=== PATIENT | female | born 1990 | race Caucasian/White ===

== ENCOUNTER 2017-10-16 07:05 | Day surgery (SDC) | payer BC ==
[~2017-10-16 07:05] MED LIST: DEXAMETHASONE SOD PHOSPHATE 10 MG/ML 1 ML VIAL IV ONE; HEPARIN SODIUM,PORCINE 5,000 UNIT/ML 1 ML VIAL SQ ONE; MIDAZOLAM 2 MG/2 ML VIAL IV PRN; ONDANSETRON 4 MG/2 ML VIAL IVP ONE; SCOPOLAMINE 1.5MG/72HR PATCH TRANSDERM ONE; fentaNYL (PF) 50 MCG/ML 2 ML AMP IV PRN
--- NOTE | 2017-10-16 07:13 | P.GSHP ---
History of Present Illness H&P Date: 10/16/17 CHIEF COMPLAINT: Cholecystitis HISTORY OF PRESENT ILLNESS: The patient is a 27-year-old female who presents with history of epigastric including right upper quadrant abdominal pain. She underwent diagnostic studies for her gallbladder. Separately her clinical picture was consistent with cholecystitis. Now she presents for surgical intervention. PAST MEDICAL HISTORY: Please see list PAST SURGICAL HISTORY: Please see list MEDICATIONS: Please see list ALLERGIES: Denies. SOCIAL HISTORY: No illicit drug use or recent tobacco use FAMILY HISTORY: Pertinent for gallbladder disease REVIEW OF ORGAN SYSTEMS: CONSTITUTIONAL: No reports of fevers or chills. HEENT: Denies any troubles with the vision or hearing. ENDOCRINE: No reports of hypothyroidism. No diabetes. RESPIRATORY: No recent pneumonias. CARDIOVASCULAR: Denies chest pain or palpitations GI: No blood in stools or constipation. MUSCULOSKELETAL: Has occasional joint pain including back pain. NEURO: No seizure disorders or headaches. No recent stroke. PSYCH: No depression or suicidal ideation. HEMATOLOGIC: No personal or family history of DVTs or pulmonary emboli. PHYSICAL EXAM: VITAL SIGNS: Afebrile vital signs stable GENERAL: Well-developed pleasant in no acute distress. HEENT: No scleral icterus. Extraocular movements grossly intact. Moist buccal mucosa. NECK: Supple without lymphadenopathy. CHEST: Unlabored respirations. Equal bilateral excursions. CARDIOVASCULAR: Regular rate regular rhythm rhythm. Distal 2+ pulses. ABDOMEN: Soft, nondistended. Tender along the epigastrium and right upper quadrant. MUSCULOSKELETAL: No clubbing, cyanosis, or edema. NEURO: Cranial nerves II to XII within normal limits. No focal or lateralizing signs. PSYCH: Alert and oriented to person, place and time. ASSESSMENT: 1. Epigastric and right upper quadrant abdominal pain 2. Chronic cholecystitis 3. Symptomatic gallstones. PLAN: 1. Will need a robotic cholecystectomy possible open. Benefits and risks were described. 2. Heparin for DVT prophylaxis 5000 units. 3. Antibiotic prophylaxis. Past Medical History Past Medical History: GERD/Reflux, Hypertension Additional Past Medical History / Comment(s): SEASONAL ALLERGIES. HEART MURMUR (HAD VALENTIN IN THE PAST COUPLE YEARS, WAS TOLD HAD A LEAKY VALVE, BUT NO NEED FOR FURTHER FOLLOW-UP). History of Any Multi-Drug Resistant Organisms: None Reported Additional Past Surgical History / Comment(s): WISDOM TEETH. VALENTIN. Past Anesthesia/Blood Transfusion Reactions: No Reported Reaction, Motion Sickness Additional Past Anesthesia/Blood Transfusion Reaction / Comment(s): HAS NEVER HAD GENERAL ANESTHESIA. Past Psychological History: Anxiety, Depression Smoking Status: Never smoker Past Alcohol Use History: Rare Past Drug Use History: None Reported - Past Family History Mother Family Medical History: No Reported History Medications and Allergies Home Medications Medication Instructions Recorded Confirmed Type Acetaminophen [Tylenol] 325 - 650 mg PO Q6H PRN 10/14/17 10/14/17 History Cetirizine HCl [Zyrtec] 10 mg PO PC-SUPPER 10/14/17 10/14/17 History Lisinopril-Hctz 10-12.5 mg 1 tab PO PC-SUPPER 10/14/17 10/14/17 History [Zestoretic 10-12.5] Ranitidine HCl [Zantac] 150 mg PO BID 10/14/17 10/14/17 History Venlafaxine HCl ER [Effexor XR] 37.5 mg PO PC-SUPPER 10/14/17 10/14/17 History Allergies Allergy/AdvReac Type Severity Reaction Status Date / Time No Known Allergies Allergy Verified 10/14/17 11:19
[2017-10-16] MEDS ORDERED: ACETAMINOPHEN IV (For NPO) 1,000 MG in EMPTY BAG 1 BAG IVPB ONE (07:39)
[2017-10-16] MEDS ORDERED: INDOCYANINE GREEN 25 MG VIAL IV STA (07:39)
[2017-10-16] MEDS: LACTATED RINGERS 1,000 ML IV SCH ×2 (08:09→08:10)
[2017-10-16 08:17] LABS: HCT 37.4 % (34.0-46.0); HGB 13.2 gm/dL (11.4-16.0); MCH 31.1 pg (25.0-35.0); MCHC 35.4 g/dL (31.0-37.0); MCV 87.8 fL (80.0-100.0); Mean Platelet Volume 6.2; Platelet Count 248 k/uL (150-450); RBC 4.25 m/uL (3.80-5.40); RDW 13.2 % (11.5-15.5); WBC 6.1 k/uL (3.8-10.6)
[2017-10-16] MEDS ORDERED: LIDOCAINE 1% 20 ML VIAL (10MG/ML) FOR IV START INTRADERMA ONE (08:19)
[2017-10-16 08:24] LABS: Potassium 4.2 mmol/L (3.5-5.1)
[2017-10-16] MEDS ORDERED: ePHEDrine SULFATE/0.9% NACL/PF 50 MG/5 ML SYRINGE IV ONE (10:53)
[2017-10-16] MEDS ORDERED: HYDROmorphone (PF) 1 MG/ML ONE (10:53)
[2017-10-16] MEDS ORDERED: SUCCINYLCHOLINE CHLORIDE 100 MG/5 ML SYR IV ONE (10:53)
[2017-10-16] MEDS ORDERED: LIDOCAINE 1% INJ 10MG/ML (20 ML MDV) ONE (10:53)
[2017-10-16] MEDS ORDERED: NEOSTIGMINE 1 MG/ML 10 ML VIAL ONE (10:53)
[2017-10-16] MEDS ORDERED: PROPOFOL 10 MG/ML 20 ML VIAL IV ONE (10:53)
[2017-10-16] MEDS ORDERED: GLYCOPYRROLATE 0.2 MG/ML 2 ML VIAL ONE (10:53)
[2017-10-16] MEDS ORDERED: ROCURONIUM BROMIDE 10 MG/ML 10 ML VIAL IV ONE (10:53)
[2017-10-16] MEDS ORDERED: MIDAZOLAM 2 MG/2 ML VIAL ONE (10:53)
[2017-10-16] MEDS ORDERED: INDOCYANINE GREEN 25 MG VIAL IV ONE (10:53)
[2017-10-16] MEDS ORDERED: fentaNYL (PF) 50 MCG/ML 2 ML AMP ONE (10:53)
[2017-10-16] MEDS ORDERED: ROPIVACAINE 5 MG/ML 30 ML VIAL MISCELLANE ONE (11:22)
--- NOTE | 2017-10-16 12:08 | P.OP ---
Date of Procedure: 10/16/17 Description of Procedure: SURGEON: MARY JO MD UNIVERSITY ADMINISTRATIVE ASSISTANT: MINERVA GARCIA PREOPERATIVE DIAGNOSES: 1. Chronic cholecystitis 2. Right upper quadrant abdominal pain. 3. Gastroesophageal reflux disease. 4. Morbid obesity due to excess calories, BMI 52.8 5. Hypertensive heart disease 6. Depressive disorder POSTOPERATIVE DIAGNOSES: 1. Acute cholecystitis due to cystic duct obstruction 2. Right upper quadrant abdominal pain. 3. Gastroesophageal reflux disease. 4. Morbid obesity due to excess calories, BMI 52.8 5. Hypertensive heart disease 6. Depressive disorder 7. Fatty liver with hepatomegaly 8. Symptomatic gallstones OPERATION: Robotic-assisted da Osito Xi laparoscopic cholecystectomy, multiport with FIREFLY ESTIMATED BLOOD LOSS: 10 mL. SPECIMENS REMOVED: Gallbladder. COMPLICATIONS: None. OPERATIVE FINDINGS: 1. Acute cholecystitis with cystic duct obstruction 2. Fatty liver with hepatomegaly 3. Gallstone found impacted in cystic duct INDICATIONS: The patient is a 27-year-old female who presents with acute cholelcystitis. Surgical intervention with a laparoscopic cholecystectomy was described at length including injury to the biliary tree, bleeding, infection, need for further surgery. Informed consent was obtained. Robotic assisted laparoscopic approach was described. Benefits and risks of the procedure including but not limited to bleeding, infection, injury to the biliary tree was described. Informed consent was obtained. DESCRIPTION OF PROCEDURE: Patient was brought to the operating room, placed in supine position. After general induction, the abdomen had been prepped and draped in standard sterile fashion. The robotic da Osito XI system was primed. After a timeout protocol was performed, the patient had been prepped and draped in standard sterile fashion. The patient was injected with indocyanine green. The robot was docked along the left lateral abdomen. The patient was repositioned in reverse Trendelenburg position. Please note prior to docking of the robot; however, a 5 mm 0 degrees laparoscopic trocar entry was performed along the left upper quadrant. Next, two 8 mm robotic ports were placed along the right upper abdomen. The camera 8-mm port was maintained along the epigastrium. Another 8 mm port was placed along the left upper abdominal wall after exchanging the 5 mm port. Please note that the ports were placed at least 10 to 15 cm away from the target anatomy of the gallbladder. Using a grasper for arm 3, a grasper for arm 2, including hook cautery for arm 1 , the robotic system was docked and primed as described. Instruments were interchanged by the program support assistant including hook cautery, Bovie cautery and clip appliers. I had sat at the console. Adhesions were identified along the infundibulum of the gallbladder and addressed using hook cautery. The gallbladder fundus was retracted over the dome of the liver. Initial attention was brought to the infundibulum which was gently retracted in the inferior lateral approach. Using a grasper, the cystic duct including the cystic artery was carefully skeletonized. FIREFLY was used to identify the cystic artery and cystic structures. Large PLASTIC clips were used throughout the entire case. Using a clip knitter operator 2 clips were placed proximally, and 1 clip was placed distally along the cystic duct and then cauterized with the cautery. Again care was taken to avoid any injury to the biliary tree as the common bile duct was clearly visualized during this portion of dissection. Next, the cystic artery was similarly clipped and cauterized. Electro-Bovie cautery was used to remove the gallbladder from the hepatic fossa. Hemostasis was checked and found to be adequate. The robot was undocked. I re-scrubbed into the case. Using a 10 mm Endo Catch bag via the left upper quadrant incision, the specimen was removed from the abdominal cavity. All pneumoperitoneum instruments were evacuated from the abdominal cavity. The incisions were reapproximated using 4-0 Monocryl in an interrupted subcuticular fashion. Shamir-Lauren and 0 Vicryl is used to close the left upper quadrant port site. Please note along the trocar sites, local anesthetic was placed as a field block prior to insertion of all instruments. Liquid glue was applied to the skin. At the end of the procedure needle, sponge, and instrument count had been verified correct by the police service technician. The patient was transferred to postanesthesia care unit in stable condition. Intraoperative films were shared with the patient's family who were very pleased with the level of care. Console time 18 minutes Plan - Discharge Summary Discharge Rx Participant: No New Discharge Prescriptions: No Action Acetaminophen [Tylenol] 325 - 650 mg PO Q6H PRN PRN Reason: Pain Cetirizine HCl [Zyrtec] 10 mg PO PC-SUPPER Lisinopril-Hctz 10-12.5 mg [Zestoretic 10-12.5] 1 tab PO PC-SUPPER Ranitidine HCl [Zantac] 150 mg PO BID Venlafaxine HCl ER [Effexor XR] 37.5 mg PO PC-SUPPER Discharge Medication List Acetaminophen [Tylenol] 325 - 650 mg PO Q6H PRN 10/14/17 [History] Cetirizine HCl [Zyrtec] 10 mg PO PC-SUPPER 10/14/17 [History] Lisinopril-Hctz 10-12.5 mg [Zestoretic 10-12.5] 1 tab PO PC-SUPPER 10/14/17 [ History] Ranitidine HCl [Zantac] 150 mg PO BID 10/14/17 [History] Venlafaxine HCl ER [Effexor XR] 37.5 mg PO PC-SUPPER 10/14/17 [History]
[2017-10-16 12:24] VITALS: TEMP 97.8
[2017-10-16 13:34] VITALS: BP 103/62; PULSE 58; RESP 18
== END 2017-10-16 14:08 | disposition home or self-care (01) ==
LOC: OR 07:05
PROVIDERS: ATTEND Surgery Plastic and Reconstructive Surgery
DX: K82.8 Other specified diseases of gallbladder (principal); K80.80 Other cholelithiasis without obstruction; K21.9 Gastro-esophageal reflux disease without esophagitis; E66.01 Morbid (severe) obesity due to excess calories; Z68.43 Body mass index [BMI] 50.0-59.9, adult; I11.9 Hypertensive heart disease without heart failure; F32.9 Major depressive disorder, single episode, unspecified; K76.0 Fatty (change of) liver, not elsewhere classified; R16.0 Hepatomegaly, not elsewhere classified; J30.2 Other seasonal allergic rhinitis; R01.1 Cardiac murmur, unspecified; F41.9 Anxiety disorder, unspecified; Z79.899 Other long term (current) drug therapy
CPT/HCPCS: 81025; 80051; 85027; 47562; J2250; J1644; J1100; J2710; J0690; J2405; J2001; J3010; J1170; J2795; J0131; J0330; J2704; 88304

== ENCOUNTER → 2017-11-11 | Outpatient (CLI) | payer BC ==
[2017-11-11 14:39] VITALS: BP 162/92; PULSE 97; RESP 14; TEMP 99.9; BMI 54.9
--- NOTE | 2017-11-11 15:03 | P.HPBAR ---
Bariatric H&P - History & Physicial H&P Date: 11/11/17 History & Physicial: Visit/CC: gallbladder f/u & sleeve consult Patient initial contact: Initial weight: 149.685 kg Initial weight in pounds: 330.00 Height: 5 ft 5 in Initial BMI: 54.9 Last weight: Current weight: 149.685 kg Current weight in pounds: 330.00 Current BMI: 54.9 [place] body weight (based on NIH guidelines): 56.699 kg Excess body weight loss: 0.0% The patient is a 27 year-old F who presents for Bariatric Assessment. DATE OF SERVICE: 11/11/2017 REASON FOR CONSULTATION: Initial bariatric evaluation. HISTORY OF PRESENT ILLNESS: Jacqueline Walker is a 27-year-old female who comes in with long-standing morbid obesity. She has been on medical supervised weight loss. She has tried Adipex for weight loss. Her highest weight was 350 pounds. She recently had her gallbladder removal. She still has heartburn. She has intolerance to pizza. She is looking into weight loss surgery. She is looking into the sleeve gastrectomy. She reports severe osteoarthritis of both knees. She has no DVTs in family. She has diabetes type 2, hypertension and kidney disease in her family. At height of 5 feet 5 inches, his ideal body weight is 149 pounds. She comes in 329 pounds. Body mass index is down from 58.4 to 54.9. She is 180 pounds overweight. PAST MEDICAL HISTORY: 1. Morbid obesity due to excess calories 2. Body mass index of 58.3, highest 3. Osteoarthritis of the knees. 4. Hypertensive heart disease. 5. Gastroesophageal reflux disease 6. Depressive disorder 7. Seasonal ALLERGIES PAST SURGICAL HISTORY: 1. Cholecystectomy HOME MEDICATIONS: 1. Effexor XR 2. Zantac 3. Zestoretic 4. Zyrtec 5. control pill ALLERGIES: Denies. SOCIAL HISTORY: No active tobacco use. FAMILY HISTORY: No family history of ulcerative colitis disease or Crohn's disease. Family history of morbid obesity. No lupus in the family. No reports of stomach or esophageal cancer. Family history of diabetes type 2. REVIEW OF ORGAN SYSTEMS: CONSTITUTIONAL: At height of 5 feet 5 inches, his ideal body weight is 149 pounds. She comes in 329 pounds. Body mass index is down from 58.4 to 54.9. She is 180 pounds overweight. HEENT: Denies any active troubles with vision or hearing. No troubles with swallowing. ENDOCRINE: No diabetes. No hypothyroidism. CARDIOVASCULAR: No reports of palpitations or heart attacks or chest pain. Has hypertension. RESPIRATORY: Has daytime somnolence. No asthma. GI: Denies any bright red blood per rectum. No diarrhea or constipation. Has gastroesophageal reflux disease. MUSCULOSKELETAL: Has lower back pain and joint pain. Has osteoarthritis of the knees. NEURO: No headaches. No seizure disorders. PSYCH: Has depression. No suicidal ideation. RHEUMATOLOGIC: No lupus. No rheumatoid arthritis. HEMATOLOGIC: Denies any abnormal bleeding or bruising. No personal history of DVTs. SKIN: No rash. No skin cancer. PHYSICAL EXAM: VITAL SIGNS: Height 5 foot 5 inches, weight 329 pounds. BMI 54.9 Vital Signs Temp 99.9 F H 11/11/17 14:26 Pulse 97 11/11/17 14:26 Resp 14 11/11/17 14:26 BP 162/92 11/11/17 14:26 Pulse Ox GENERAL: Well-developed in no acute distress. HEENT: No scleral icterus. Extraocular movements grossly intact. Hears conversational speech. No nasal drainage. NECK: Supple without lymphadenopathy. CHEST: Nonlabored respirations with equal bilateral excursions. CARDIOVASCULAR: Regular rate and regular rhythm. Distal 2+ pulses. ABDOMEN: Obese, soft, nontender, nondistended. MUSCULOSKELETAL: No clubbing, cyanosis. Gross strength 5/5 distal lower extremities. NEURO: No focal or lateralizing signs. Cranial nerves 2 through 12 grossly within normal limits. PSYCH: Appropriate affect. Alert and oriented to person, place and time. SKIN: Good skin turgor. Well perfused. ASSESSMENT: 1. Morbid obesity due to excess calories 2. Body mass index of 58.3, highest 3. Osteoarthritis of the knees. 4. Hypertensive heart disease. 5. Gastroesophageal reflux disease 6. Depressive disorder 7. Seasonal ALLERGIES PLAN: 1. Surgical options including a band, gastric bypass, sleeve gastrectomy were described in detail. Alternatives such as gastric balloon including duodenal switch were described. 2. The [place] bariatric surgical collaborative data and outcomes calculator were described with surgical options. 3. Recommend a bariatric metabolic panel to evaluate for micro- including macronutrient deficiencies. 4. Psych assessment per insurance guidelines. 5. Recommend upper endoscopy. Thank you for this consultation. Past Medical History Past Medical History: GERD/Reflux, Hypertension Additional Past Medical History / Comment(s): SEASONAL ALLERGIES. HEART MURMUR (HAD T.E.E. (transesophogeal echo) IN THE PAST COUPLE YEARS, WAS TOLD HAD A LEAKY VALVE, BUT NO NEED FOR FURTHER FOLLOW-UP). History of Any Multi-Drug Resistant Organisms: None Reported Past Surgical History: Cholecystectomy Additional Past Surgical History / Comment(s): WISDOM TEETH. VALENTIN. Past Anesthesia/Blood Transfusion Reactions: No Reported Reaction, Motion Sickness Additional Past Anesthesia/Blood Transfusion Reaction / Comm: To date, HAS NEVER HAD GENERAL ANESTHESIA nor blood transfusion Past Psychological History: Anxiety, Depression Smoking Status: Never smoker Past Alcohol Use History: Rare Past Drug Use History: None Reported - Past Family History Mother Family Medical History: Diabetes Mellitus, Hypertension Additional Family Medical History / Comment(s): Type 2 DM, anxiety, depression, Father Family Medical History: Diabetes Mellitus, Hypertension, Renal Disease Additional Family Medical History / Comment(s): Type 2 DM, at age 55 from renal failure Surgical - Exam Vital Signs Temp Pulse Resp BP 99.9 F H 97 14 162/92 11/11/17 14:26 11/11/17 14:26 11/11/17 14:26 11/11/17 14:26 Results - Labs 11/11/17 15:35 11/11/17 15:35 Bariatric Checklist Checklist: Plan: Checklist: EGD: 1. Hiatal hernia: 2. H. Pylori: HgbA1c: Vitamin D: Smoking: Never smoker Primary care physician referral: Shelby Grimes ([facility]) Psychiatry clearance: Cardiology clearance: Sleep study: Diet journal: VTE risk score: VTE risk level: Rehab needs at discharge:
[2017-11-11 16:16] LABS: HCT 40.2 % (34.0-46.0); HGB 13.9 gm/dL (11.4-16.0); MCHC 34.5 g/dL (31.0-37.0); MCV 86.9 fL (80.0-100.0); Mean Platelet Volume 6.7; Platelet Count 299 k/uL (150-450); RBC 4.62 m/uL (3.80-5.40); RDW 13.5 % (11.5-15.5); WBC 8.8 k/uL (3.8-10.6)
[2017-11-11 16:23] LABS: ALT 53 U/L (9-52); AST 33 U/L (14-36); Albumin 4.7 g/dL (3.5-5.0); Alkaline Phosphatase 54 U/L (38-126); Anion Gap 13 mmol/L; Blood Urea Nitrogen 20 mg/dL (7-17); Carbon Dioxide 25 mmol/L (22-30); Chloride 103 mmol/L (98-107); Cholesterol 203 mg/dL (<200); Glucose 88 mg/dL (74-99); HDL Cholesterol 64 mg/dL (40-60); LDL Cholesterol,Calculated 78 mg/dL (0-99); Potassium 4.4 mmol/L (3.5-5.1); Sodium 141 mmol/L (137-145); Total Bilirubin 0.4 mg/dL (0.2-1.3); Total Protein 7.6 g/dL (6.3-8.2); Triglycerides 305 mg/dL (<150)
[2017-11-12 00:59] LABS: Iron Saturation 20.37 (12.00-45.00)
[2017-11-12 01:04] LABS: Vitamin D 25 Hydroxy 12.7 ng/mL (30.0-100.0)
[2017-11-12 01:44] LABS: Folate, Serum 15.1 ng/mL
[2017-11-12 04:49] LABS: Hemoglobin A1C 5.4 % (4.0-6.0)
== END | disposition home or self-care (01) ==
LOC: BARWHC3 14:04
PROVIDERS: ATTEND Surgery Plastic and Reconstructive Surgery
DX: E66.01 Morbid (severe) obesity due to excess calories (principal); E88.81 Metabolic syndrome and other insulin resistance; E44.0 Moderate protein-calorie malnutrition; E55.9 Vitamin D deficiency, unspecified; I11.9 Hypertensive heart disease without heart failure; G47.30 Sleep apnea, unspecified; M17.0 Bilateral primary osteoarthritis of knee; Z68.43 Body mass index [BMI] 50.0-59.9, adult; Z90.49 Acquired absence of other specified parts of digestive tract
CPT/HCPCS: 36415; 80053; 80061; 82306; 82607; 82728; 82746; 83036; 83540; 83550; 84425; 84443; 85027; 93005; 99211

== ENCOUNTER 2017-12-07 07:07 | Day surgery (SDC) | payer BC ==
[2017-12-04 10:41] VITALS: BMI 54.9
--- NOTE | 2017-12-06 21:39 | P.GSHP ---
History of Present Illness H&P Date: 12/07/17 CHIEF COMPLAINT: GERD HISTORY OF PRESENT ILLNESS: The patient is a 27-year-old female who presents reports gastroesophageal reflux disease. Upper endoscopy was offered for further evaluation and management. PAST MEDICAL HISTORY: Please see list. PAST SURGICAL HISTORY: Please see list. MEDICATIONS: Please see list. ALLERGIES: Please see list. SOCIAL HISTORY: No illicit drug use FAMILY HISTORY: No reports of Crohn disease or ulcerative colitis. REVIEW OF ORGAN SYSTEMS: CONSTITUTIONAL: No reports of fevers or chills. GI: Denies any blood in stools or constipation. PHYSICAL EXAM: VITAL SIGNS: Stable GENERAL: Well-developed and pleasant in no acute distress. HEENT: No scleral icterus. Extraocular movements grossly intact. Moist buccal mucosa. NECK: Supple without lymphadenopathy. CHEST: Unlabored respirations. Equal bilateral excursions. CARDIOVASCULAR: Regular rate and rhythm. Distal 2+ pulses. ABDOMEN: Soft, nondistended. MUSCULOSKELETAL: No clubbing, cyanosis, or edema. ASSESSMENT: 1. Gastroesophageal reflux disease PLAN: 1. Recommend proceeding with an upper endoscopy Past Medical History Past Medical History: Hypertension Additional Past Medical History / Comment(s): occ migraine, heart murmer, leaky heart valve, History of Any Multi-Drug Resistant Organisms: None Reported Past Surgical History: Cholecystectomy Additional Past Surgical History / Comment(s): WISDOM TEETH. VALENTIN. Past Anesthesia/Blood Transfusion Reactions: Motion Sickness, Postoperative Nausea & Vomiting (PONV) Additional Past Anesthesia/Blood Transfusion Reaction / Comment(s): To date, HAS NEVER HAD GENERAL ANESTHESIA nor blood transfusion Smoking Status: Never smoker - Past Family History Mother Family Medical History: No Reported History Additional Family Medical History / Comment(s): . Father Family Medical History: Diabetes Mellitus, Hypertension, Renal Disease Additional Family Medical History / Comment(s): Type 2 DM, at age 55 from renal failure Medications and Allergies Home Medications Medication Instructions Recorded Confirmed Type Cetirizine HCl [Zyrtec] 10 mg PO PC-SUPPER 10/14/17 12/04/17 History Lisinopril-Hctz 10-12.5 mg 1 tab PO PC-SUPPER 10/14/17 12/04/17 History [Zestoretic 10-12.5] Ranitidine HCl [Zantac] 150 mg PO BID 10/14/17 12/04/17 History Venlafaxine HCl ER [Effexor XR] 37.5 mg PO PC-SUPPER 10/14/17 12/04/17 History Norethindrone-E.estradiol-Iron 1 each PO DAILY 11/11/17 12/04/17 History [Microgestin Fe 1-20 Tablet] Cholecalciferol [Vitamin D3] 5,000 unit PO DAILY 12/04/17 12/04/17 History Allergies Allergy/AdvReac Type Severity Reaction Status Date / Time No Known Allergies Allergy Verified 12/04/17 10:34
[~2017-12-07 07:07] MED LIST changes: -DEXAMETHASONE SOD PHOSPHATE 10 MG/ML 1 ML VIAL IV ONE; -HEPARIN SODIUM,PORCINE 5,000 UNIT/ML 1 ML VIAL SQ ONE; +LACTATED RINGERS 1,000 ML IV SCH; +LIDOCAINE 1% 20 ML VIAL (10MG/ML) FOR IV START INTRADERMA PRN; -MIDAZOLAM 2 MG/2 ML VIAL IV PRN; -ONDANSETRON 4 MG/2 ML VIAL IVP ONE; -SCOPOLAMINE 1.5MG/72HR PATCH TRANSDERM ONE; -fentaNYL (PF) 50 MCG/ML 2 ML AMP IV PRN
[2017-12-07 07:35] VITALS: RESP 16; TEMP 99
[2017-12-07] MEDS ORDERED: fentaNYL (PF) 50 MCG/ML 2 ML AMP ONE (08:06)
[2017-12-07] MEDS ORDERED: PROPOFOL 10 MG/ML 20 ML VIAL IV ONE (08:06)
[2017-12-07] MEDS ORDERED: LIDOCAINE 1% INJ 10MG/ML (20 ML MDV) ONE (08:06)
[2017-12-07] MEDS ORDERED: MIDAZOLAM 2 MG/2 ML VIAL ONE (08:06)
--- NOTE | 2017-12-07 08:24 | P.PCN ---
Date of Procedure: 12/07/17 Description of Procedure: PREOPERATIVE DIAGNOSIS: Gastroesophageal reflux disease. Morbid obesity. POSTOPERATIVE DIAGNOSIS: Morbid obesity. Gastritis. Gastroesophageal reflux disease. OPERATION: Esophagogastroduodenoscopy with biopsies along antrum. SURGEON: Sakina Quijano MD ANESTHESIA: MAC. INDICATIONS: The patient is a 27-year-old female who presents with a history of reflux disease. Benefits and risks of the procedure were described. Informed consent was obtained. DESCRIPTION: The patient was brought into the endoscopy suite and laid in the left lateral decubitus position. An Olympus gastroscope was passed along the posterior oropharynx down to the distal esophagus where the squamocolumnar junction was encountered at 35 cm from the incisors. The stomach was entered and no bile reflux was found. Additional findings are listed below. Biopsies with cold forceps were obtained of the antrum. The first through third portion of the duodenum was examined and unremarkable. Retroflexion of the scope confirmed Hill grade 1 lower esophageal valve. The squamocolumnar junction demostrated early acute LA grade A erosive esophagitis. The stomach was desufflated. The patient tolerated the procedure well. FINDINGS: Squamocolumnar junction 35 cm from the incisors. Diaphragmatic hiatus at 35 cm. Hill grade 1 lower esophageal valve. LA grade A erosive esophagitis. No active duodenitis. Mild gastritis RECOMMENDATIONS: Upper endoscopy as needed. Plan - Discharge Summary New Discharge Prescriptions: No Action Cetirizine HCl [Zyrtec] 10 mg PO PC-SUPPER Lisinopril-Hctz 10-12.5 mg [Zestoretic 10-12.5] 1 tab PO PC-SUPPER Ranitidine HCl [Zantac] 150 mg PO BID Venlafaxine HCl ER [Effexor XR] 37.5 mg PO PC-SUPPER Norethindrone-E.estradiol-Iron [Microgestin Fe 1-20 Tablet] 1 each PO DAILY Cholecalciferol [Vitamin D3] 5,000 unit PO DAILY Discharge Medication List Cetirizine HCl [Zyrtec] 10 mg PO PC-SUPPER 10/14/17 [History] Lisinopril-Hctz 10-12.5 mg [Zestoretic 10-12.5] 1 tab PO PC-SUPPER 10/14/17 [ History] Ranitidine HCl [Zantac] 150 mg PO BID 10/14/17 [History] Venlafaxine HCl ER [Effexor XR] 37.5 mg PO PC-SUPPER 10/14/17 [History] Norethindrone-E.estradiol-Iron [Microgestin Fe 1-20 Tablet] 1 each PO DAILY [History] Cholecalciferol [Vitamin D3] 5,000 unit PO DAILY 12/04/17 [History]
[2017-12-07 08:47] VITALS: BP 129/72; PULSE 62
== END 2017-12-07 08:59 | disposition home or self-care (01) ==
LOC: ORWHC2ENDO 07:07
PROVIDERS: ATTEND Surgery Plastic and Reconstructive Surgery
DX: K21.0 Gastro-esophageal reflux disease with esophagitis (principal); K29.50 Unspecified chronic gastritis without bleeding; I10 Essential (primary) hypertension; E66.01 Morbid (severe) obesity due to excess calories; Z68.43 Body mass index [BMI] 50.0-59.9, adult; Z79.3 Long term (current) use of hormonal contraceptives; Z79.899 Other long term (current) drug therapy; Z83.3 Family history of diabetes mellitus; Z82.49 Family history of ischemic heart disease and other diseases of the circulatory system
CPT/HCPCS: 43239; 81025; 88305; J2250; J2001; J3010; J2704

== ENCOUNTER → 2021-04-10 | Outpatient (CLI) | payer BC ==
[2021-04-10 15:04] VITALS: BP 142/97; PULSE 102; RESP 18; TEMP 98.3; BMI 60.0
--- NOTE | 2021-04-10 15:22 | P.HPBAR ---
Bariatric H&P - History & Physicial H&P Date: 04/10/21 History & Physicial: Visit/CC: follow up Patient initial contact: Initial weight: 149.685 kg Initial weight in pounds: 330.00 Height: 5 ft 5.5 in Initial BMI: 54.1 Last weight: Current weight: 166.015 kg Current weight in pounds: 366.00 Current BMI: 60.0 [place] body weight (based on NIH guidelines): 57.833 kg Excess body weight loss: The patient is a 30 year-old F who presents for Bariatric Assessment. She is looking into the gastric bypass. Her mother and father has obesity, and brother. She has hip pain, left side. She has crepitus of the knees. No ankle pain or lower back pain. She is snoring and works midnight. She has not been tested for sleep apnea. Her gallbladder is removed. No other pelvic surgeries. No Crohns or ulcerative colitis. No chronic diarrhea. She has tried low carb, Adpiex, Keto, low calorie for weight loss. With Adipex, she lost 100 pounds in 3 years. She reports being an emotional eater and she regained most of her weight. She has GERD and takes Prilosec daily. [facility] later. Past Medical History Past Medical History: GERD/Reflux, Hypertension Additional Past Medical History / Comment(s): occ migraine, heart murmer, leaky heart valve. crush injury to left hand - march 2020. prediabetic. History of Any Multi-Drug Resistant Organisms: None Reported Past Surgical History: Cholecystectomy, Orthopedic Surgery Additional Past Surgical History / Comment(s): WISDOM TEETH. VALENTIN. bilateral hands carpal tunnel - 2017. pins, k-wires placed in left hand 03/2020 ([facility]). Past Anesthesia/Blood Transfusion Reactions: Motion Sickness, Postoperative Nausea & Vomiting (PONV) Additional Past Anesthesia/Blood Transfusion Reaction / Comm: 04/10/21 - no blood transfusion history. Past Psychological History: Anxiety, Depression Smoking Status: Never smoker Past Alcohol Use History: Rare Past Drug Use History: None Reported Additional Drug Use History / Comment(s): 04/10/21 - previous history of marijuana use, no current use. - Past Family History Mother Family Medical History: Diabetes Mellitus, Hypertension Additional Family Medical History / Comment(s): Type 2 DM, anxiety, depression, Father Family Medical History: Diabetes Mellitus, Hypertension, Renal Disease Additional Family Medical History / Comment(s): Type 2 DM, at age 55 from renal failure Surgical - Exam Vital Signs Temp Pulse Resp BP 98.3 F 102 H 18 142/97 04/10/21 14:46 04/10/21 14:46 04/10/21 14:46 04/10/21 14:46 Bariatric Checklist Checklist: Plan: Checklist: EGD: 1. Hiatal hernia: 2. H. Pylori: HgbA1c: Vitamin D: Smoking: Never smoker Primary care physician referral: Shelby Banks ([facility]) Psychiatry clearance: Cardiology clearance: Sleep study: Diet journal: VTE risk score: VTE risk level: Rehab needs at discharge:
[2021-04-10 16:27] LABS: HCT 39.8 % (34.0-46.0); HGB 14.1 gm/dL (11.4-16.0); MCH 31.6 pg (25.0-35.0); MCHC 35.4 g/dL (31.0-37.0); MCV 89.4 fL (80.0-100.0); Mean Platelet Volume 7.5; Platelet Count 249 k/uL (150-450); RBC 4.45 m/uL (3.80-5.40); RDW 12.3 % (11.5-15.5); WBC 7.8 k/uL (3.8-10.6)
[2021-04-10 16:45] LABS: INR 0.9 (<1.2)
[2021-04-10 16:46] LABS: Prothrombin Time 9.9 sec (9.0-12.0)
[2021-04-11 08:06] LABS: % Iron Saturation 10.23 (12.00-45.00); ALT 28 U/L (8-44); AST 25 U/L (13-35); African American GFR (CKD) 77.5 (60.0-200.0); Albumin 4.3 g/dL (3.8-4.9); Albumin/Globulin Ratio 1.54 (1.60-3.17); Alkaline Phosphatase 63 U/L (41-126); BUN/Creat Ratio 20.45 Ratio (12.00-20.00); Blood Urea Nitrogen 22.5 mg/dL (9.0-27.0); Calcium 9.2 mg/dL (8.7-10.3); Carbon Dioxide 17.5 mmol/L (21.6-31.8); Chloride 104 mmol/L (96-109); Chol/HDL Ratio 2.83 Ratio; Globulin 2.8 g/dL (1.6-3.3); Glucose 104 mg/dL (70-110); Iron 53 ug/dL (50-170); Magnesium 1.9 mg/dL (1.5-2.4); Non-African American GFR(CKD) 66.8 (60.0-200.0); Phosphorus 4.1 mg/dL (2.4-5.1); Potassium 4.4 mmol/L (3.5-5.5); Prealbumin 37.8 mg/dL (18.0-42.0); Sodium 139 mmol/L (135-145); Total Bilirubin <0.20 mg/dL (0.30-1.20); Total Iron Binding Capacity 522 ug/dL (228-460); Total Protein 7.1 g/dL (6.2-8.2)
[2021-04-11 14:12] LABS: Zinc, Serum 70 ug/dL (60-130)
[2021-04-12 12:40] LABS: Vit B1(Thiamine) 93 ug/L (38-122)
[2021-04-15 07:52] LABS: Anabasine Urine <2.0 ng/mL (<2.0)
[2021-04-16 09:02] LABS: Vitamin A 90 ug/dL (38-106)
== END | disposition home or self-care (01) ==
LOC: BARWHC3 14:35
PROVIDERS: ATTEND Surgery Plastic and Reconstructive Surgery
DX: E66.01 Morbid (severe) obesity due to excess calories (principal); D50.8 Other iron deficiency anemias; E89.1 Postprocedural hypoinsulinemia; E44.0 Moderate protein-calorie malnutrition; E55.9 Vitamin D deficiency, unspecified; K74.1 Hepatic sclerosis; N19 Unspecified kidney failure; K50.90 Crohn's disease, unspecified, without complications; Z68.44 Body mass index [BMI] 60.0-69.9, adult
CPT/HCPCS: 84255; 84134; 84425; 80061; 80053; 82607; 82728; 82525; 82746; 83540; 83550; 83735; 84100; 84443; 84590; 84630; 85027; 85610; 85730; 82306; 80323; 83970; 83036; 80307; 99203; 36415; G0482

== ENCOUNTER → 2021-07-04 | Outpatient (CLI) | payer BC ==
[2021-07-05 12:38] LABS: Coronavirus SARS CoV-2 Not Detected (Not Detected)
== END | disposition home or self-care (01) ==
LOC: LABWHC1 11:11
PROVIDERS: ATTEND Surgery Plastic and Reconstructive Surgery
DX: Z03.818 Encounter for observation for suspected exposure to other biological agents ruled out (principal); Z20.822 Contact with and (suspected) exposure to COVID-19
CPT/HCPCS: U0003; U0005

== ENCOUNTER 2021-07-08 07:18 | Day surgery (SDC) | payer BC ==
[2021-07-04 13:47] VITALS: BMI 61.5
[~2021-07-08 07:18] MED LIST changes: -LIDOCAINE 1% 20 ML VIAL (10MG/ML) FOR IV START INTRADERMA PRN
--- NOTE | 2021-07-08 07:35 | P.GSHP ---
History of Present Illness H&P Date: 07/08/21 CHIEF COMPLAINT: GERD HISTORY OF PRESENT ILLNESS: The patient is a 30-year-old female who presents reports gastroesophageal reflux disease. Upper endoscopy was offered for further evaluation and management. PAST MEDICAL HISTORY: Please see list. PAST SURGICAL HISTORY: Please see list. MEDICATIONS: Please see list. ALLERGIES: Please see list. SOCIAL HISTORY: No illicit drug use FAMILY HISTORY: No reports of Crohn disease or ulcerative colitis. REVIEW OF ORGAN SYSTEMS: CONSTITUTIONAL: No reports of fevers or chills. GI: Denies any blood in stools or constipation. PHYSICAL EXAM: VITAL SIGNS: Stable GENERAL: Well-developed and pleasant in no acute distress. HEENT: No scleral icterus. Extraocular movements grossly intact. Moist buccal mucosa. NECK: Supple without lymphadenopathy. CHEST: Unlabored respirations. Equal bilateral excursions. CARDIOVASCULAR: Regular rate and rhythm. Distal 2+ pulses. ABDOMEN: Soft, nondistended. MUSCULOSKELETAL: No clubbing, cyanosis, or edema. ASSESSMENT: 1. Gastroesophageal reflux disease PLAN: 1. Recommend proceeding with an upper endoscopy Past Medical History Past Medical History: GERD/Reflux, Hypertension Additional Past Medical History / Comment(s): occ migraine, heart murmur, leaky heart valve, crush injury to left hand - march 2020, prediabetic. History of Any Multi-Drug Resistant Organisms: None Reported Past Surgical History: Cholecystectomy, Orthopedic Surgery Additional Past Surgical History / Comment(s): bilateral hand carpal tunnel, pins and k-wires placed in left hand 03/2020 ([facility]). Past Anesthesia/Blood Transfusion Reactions: Motion Sickness, Postoperative Nausea & Vomiting (PONV) Additional Past Anesthesia/Blood Transfusion Reaction / Comment(s): 04/10/21 - no blood transfusion history. Past Psychological History: Anxiety, Depression Smoking Status: Never smoker Past Alcohol Use History: Rare Past Drug Use History: None Reported - Past Family History Mother Family Medical History: Diabetes Mellitus, Hypertension Additional Family Medical History / Comment(s): Type 2 DM, anxiety, depression, Father Family Medical History: Diabetes Mellitus, Hypertension, Renal Disease Additional Family Medical History / Comment(s): Type 2 DM, at age 55 from renal failure Medications and Allergies Home Medications Medication Instructions Recorded Confirmed Type Cetirizine HCl [Zyrtec] 10 mg PO DAILY 10/14/17 07/04/21 History Lisinopril-Hctz 10-12.5 mg 1 tab PO BID 10/14/17 07/04/21 History [Zestoretic 10-12.5] Omeprazole Magnesium [PriLOSEC] 20 mg PO DAILY 04/10/21 07/04/21 History buPROPion SR [Wellbutrin SR] 150 mg PO DAILY 04/10/21 07/04/21 History Norgestimate-Ethinyl Estradiol 1 each PO DAILY 07/04/21 07/04/21 History [Tri-Sprintec Tablet] Allergies Allergy/AdvReac Type Severity Reaction Status Date / Time No Known Allergies Allergy Verified 07/04/21 13:36
[2021-07-08 08:16] LABS: Glucose,Whole Blood 111 mg/dL (75-99)
[2021-07-08] MEDS ORDERED: PROPOFOL 10 MG/ML 20 ML VIAL IV ONE (08:20)
[2021-07-08] MEDS ORDERED: LIDOCAINE 1% INJ 10MG/ML (20 ML MDV) ONE (08:20)
[2021-07-08 08:22] VITALS: TEMP 97.9
--- NOTE | 2021-07-08 08:36 | P.PCN ---
Date of Procedure: 07/08/21 Description of Procedure: PREOPERATIVE DIAGNOSIS: Gastroesophageal reflux disease. Morbid obesity. POSTOPERATIVE DIAGNOSIS: Gastritis. Gastroesophageal reflux disease. OPERATION: Esophagogastroduodenoscopy with biopsies along antrum. SURGEON: Sakina Quijano MD ANESTHESIA: MAC. INDICATIONS: The patient is a 30-year-old female who presents with a history of reflux disease. Benefits and risks of the procedure were described. Informed consent was obtained. DESCRIPTION: The patient was brought into the endoscopy suite and laid in the left lateral decubitus position. An Olympus gastroscope was passed along the posterior oropharynx down to the distal esophagus where the squamocolumnar junction was encountered at 37 cm from the incisors. The stomach was entered and bile reflux was found. Additional findings are listed below. Biopsies with cold forceps were obtained of the antrum. The first through third portion of the duodenum was examined and unremarkable. Retroflexion of the scope confirmed Hill grade 2 lower esophageal valve. The squamocolumnar junction demonstrated LA grade A erosive esophagitis. The stomach was desufflated. The patient tolerated the procedure well. FINDINGS: Squamocolumnar junction 37 cm from the incisors. Diaphragmatic hiatus at 37 cm. Hill grade 4 lower esophageal valve. LA grade A erosive esophagitis. No active duodenitis. Chronic gastritis with bile reflux RECOMMENDATIONS: Upper endoscopy as needed. Plan - Discharge Summary Discharge Rx Participant: No New Discharge Prescriptions: Continue Cetirizine HCl [Zyrtec] 10 mg PO DAILY Lisinopril-Hctz 10-12.5 mg [Zestoretic 10-12.5] 1 tab PO BID buPROPion SR [Wellbutrin SR] 150 mg PO DAILY Omeprazole Magnesium [PriLOSEC] 20 mg PO DAILY Norgestimate-Ethinyl Estradiol [Tri-Sprintec Tablet] 1 each PO DAILY Discharge Medication List Cetirizine HCl [Zyrtec] 10 mg PO DAILY 10/14/17 [History] Lisinopril-Hctz 10-12.5 mg [Zestoretic 10-12.5] 1 tab PO BID 10/14/17 [History] Omeprazole Magnesium [PriLOSEC] 20 mg PO DAILY 04/10/21 [History] buPROPion SR [Wellbutrin SR] 150 mg PO DAILY 04/10/21 [History] Norgestimate-Ethinyl Estradiol [Tri-Sprintec Tablet] 1 each PO DAILY 07/04/21 [History] Follow up Appointment(s)/Referral(s): [facility] [[facility]-STAFF] - 07/24/21 Patient Instructions/Handouts: Gastritis (ED), Diet for Stomach Ulcers and Gastritis (ED) Discharge Disposition: HOME SELF-CARE
[2021-07-08 08:42] VITALS: BP 143/98; PULSE 98; RESP 16
[2021-07-08] MEDS ORDERED: HYDROcodone/APAP 5-325MG 1 EACH TAB PO ONE (09:37)
== END 2021-07-08 09:00 | disposition home or self-care (01) ==
LOC: ORWHC2ENDO 07:18
PROVIDERS: ATTEND Surgery Plastic and Reconstructive Surgery
DX: K21.9 Gastro-esophageal reflux disease without esophagitis (principal); K29.70 Gastritis, unspecified, without bleeding; I10 Essential (primary) hypertension
CPT/HCPCS: 43239; 81025; 88305; J2001; J2704

== ENCOUNTER → 2022-01-06 | Outpatient (CLI) | payer BC ==
[2022-01-06 10:37] VITALS: BMI 62.0
== END | disposition home or self-care (01) ==
LOC: BARWHC3 08:49
PROVIDERS: ATTEND Surgery Plastic and Reconstructive Surgery
DX: E66.01 Morbid (severe) obesity due to excess calories (principal); Z71.3 Dietary counseling and surveillance; Z68.44 Body mass index [BMI] 60.0-69.9, adult
CPT/HCPCS: 97804